=== PATIENT | female | born 1970 | race Caucasian/White ===

== ENCOUNTER → 2021-01-18 | Outpatient (CLI) | payer OTHER ==
[~2021-01-18] MED LIST: HYDROCHLOROTHIA50 MG PO; KRILL OIL PO; LEXAPRO10 MG PO; LIDOCAINE PATCH 5% TOP; METHOCARBAMOL500 MG PO; NEURONTIN800 MG PO; PERCOCET 10-321 EACH PO; PLAQUENIL200 MG PO; PROVERA10 MG PO; TRAZODONE HCL50 MG PO
[2021-01-18 12:07] LABS: HEMOGLOBIN 15.7 gm/dl (12.3-15.3); RED BLOOD COUNT 4.82 M/UL (4.00-5.10); WHITE BLOOD COUNT 4.7 K/UL (4.5-11.0)
[2021-01-18 12:26] LABS: BUN/CREATININE RATIO 14 (0-10)
== END ==
LOC: OPSV2 11:00
PROVIDERS: Obstetrics & Gynecology
DX: Z01.818 Encounter for other preprocedural examination (principal); N93.9 Abnormal uterine and vaginal bleeding, unspecified
CPT/HCPCS: 36415; 71046; 80053; 81001; 85025; 93005

== ENCOUNTER → 2021-01-25 | Day surgery (SDC) | payer OTHER ==
[~2021-01-25] MED LIST changes: +DOCUSATE SODIU100 MG PO; +HYDROCODON-ACE1 EAC2 PO; +IBUPROFEN800 MG PO
== END | disposition home or self-care (01) ==
LOC: OR 05:50
DX: N84.0 Polyp of corpus uteri (principal); I10 Essential (primary) hypertension; E78.5 Hyperlipidemia, unspecified; E11.9 Type 2 diabetes mellitus without complications; F41.9 Anxiety disorder, unspecified; Z88.2 Allergy status to sulfonamides; Z88.6 Allergy status to analgesic agent; Z79.899 Other long term (current) drug therapy; Z20.822 Contact with and (suspected) exposure to COVID-19
CPT/HCPCS: 84703; J1100; J1885; J2001; J2250; J2405; J2704; J2795; J3010; J7030; J7120; U0002